=== PATIENT | female | born 1995 ===

== ENCOUNTER 2017-11-02 20:57 | Emergency (ER) | payer OTHER ==
[2017-11-02 22:42] LABS: BASO # 0.1 K/uL (0.0-0.2); BASO % 1.5 % (0.0-2.0); EOS # 0.3 K/uL (0.0-0.7); EOS % 3.2 % (0.0-4.0); HEMOGLOBIN 14.3 g/dL (12.0-16.0); LYMPH % 47.5 % (20.0-40.0); MEAN CELL VOLUME 79.4 fl (81.0-99.0); MEAN CORPUSCULAR HEMOGLOBIN 25.5 pg (27.0-31.0); MEAN CORPUSCULAR HGB CONC 32.1 g/dL (33.0-37.0); MEAN PLATELET VOLUME 8.2 fl (7.2-11.7); MONO # 0.9 K/uL (0.0-0.8); MONO % 10.2 % (0.0-10.0); NEUT # 3.2 K/uL (1.8-7.0); NEUT % 37.6 % (50.0-75.0); NRBC % 0.1 % (0.0-0.0); RBC 5.6 Mil/uL (3.80-5.20); RED CELL DISTRIBUTION WIDTH 14.5 % (11.5-14.5); WHITE BLOOD COUNT 8.4 K/uL (4.8-10.8)
[2017-11-02 22:55] VITALS: BMI 22.4
[2017-11-02 22:56] VITALS: RESP 18; TEMP 98.2; O2SAT 100
--- NOTE | 2017-11-02 23:06 | ED PDOC ---
HPI: CCC, URI, Sore Throat Time Seen by Provider: 11/02/17 21:15 Chief Complaint (Nursing): Cough, Cold, Congestion Chief Complaint (Provider): Dry Cough History Per: Patient History/Exam Limitations: no limitations Onset/Duration Of Symptoms: Days (two weeks), Intermittent Episodes Location Of Pain: Throat Additional History Per: Patient Additional Complaint(s): Patient presenting with dry cough for 1 week. 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 PMD none Past Medical History Reviewed: Historical Data, Nursing Documentation, Vital Signs Vital Signs: Last Vital Signs Temp 98.2 F 11/02/17 21:04 Pulse 122 H 11/03/17 00:45 Resp 18 11/02/17 21:04 BP 148/88 11/02/17 21:04 Pulse Ox 100 11/03/17 00:45 - Medical History PMH: Hyperthyroidism - Surgical History Surgical History: No Surg Hx - Family History Family History: States: No Known Family Hx - Home Medications Home Medications: Ambulatory Orders Medication Instructions Recorded Benzonatate [Tessalon Perles] 100 mg PO TID PRN #30 sgl 11/03/17 Methimazole 10 mg PO DAILY #30 tablet 11/03/17 - Allergies Allergies/Adverse Reactions: Allergies Allergy/AdvReac Type Severity Reaction Status Date / Time No Known Allergies Allergy Verified 11/02/17 21:04 Review of Systems ROS Statement: Except As Marked, All Systems Reviewed And Found Negative Cardiovascular: Negative for: Chest Pain, Palpitations Respiratory: Positive for: Cough. Negative for: Shortness of Breath Neurological: Negative for: Weakness, Numbness, Headache Physical Exam - Reviewed Nursing Documentation Reviewed: Yes Vital Signs Reviewed: Yes - Physical Exam Appears: Positive for: Well, Non-toxic, No Acute Distress Head Exam: Positive for: ATRAUMATIC, NORMAL INSPECTION Skin: Positive for: Normal Color, Warm, Dry Eye Exam: Positive for: EOMI ENT: Positive for: Normal ENT Inspection Neck: Positive for: Painless ROM, Supple, Trachea Midline (thyrodis gland enlarged) Cardiovascular/Chest: Positive for: Regular Rate, Rhythm, Tachycardia Respiratory: Positive for: Normal Breath Sounds. Negative for: Rales, Wheezing , Respiratory Distress Gastrointestinal/Abdominal: Positive for: Soft. Negative for: Tenderness Extremity: Positive for: Normal ROM Neurologic/Psych: Positive for: Alert, Oriented - Laboratory Results Result Diagrams: 11/02/17 21:45 11/02/17 23:02 - ECG ECG: Positive for: Interpreted By Me, Viewed By Me ECG Rhythm: Positive for: Normal QRS, Normal ST Segment, Sinus Rhythm, Sinus Tachycardia. Negative for: ST/T Changes Rate: 122 O2 Sat by Pulse Oximetry: 100 - Radiology X-Ray: Interpreted by Me, Viewed By Me X-Ray Interpretation: No Acute Disease Medical Decision Making Medical Decision Making: Impression Cough, thyroid goiter, tachycardia Hyperthyroid, goiter, bronchitis. Plan: CBC BMP TSH CXR reassess Labs reviewed. Patient is stable for discharge. Discussed with FP resident who will make a follow up appointment with [facility]. Disposition - Clinical Impression Clinical Impression: Cough, Thyroid goiter, Hyperthyroidism - Patient ED Disposition Is Patient to be Admitted: No Doctor Will See Patient In The: Office Counseled Patient/Family Regarding: Studies Performed, Diagnosis, Need For Followup - Disposition Referrals: [facility] [Outside] Disposition: Routine/Home Disposition Time: 00:30 Condition: GOOD Additional Instructions: Take your medications as instructed. Follow up with your PCP within 1 week. Prescriptions: Benzonatate [Tessalon Perles] 100 mg PO TID PRN #30 sgl PRN Reason: Cough Methimazole 10 mg PO DAILY #30 tablet Instructions: Hyperthyroidism (ED) Print Language: TURKMEN
[2017-11-02 23:11] LABS: BLOOD UREA NITROGEN 8 mg/dl (7-17); CALCIUM 9.8 mg/dL (8.4-10.2); GFR AFRICAN-AMERICAN > 60; GFR NON-AFRICAN AMERICAN > 60
[2017-11-03 00:50] VITALS: BP 114/57
[2017-11-03 01:09] VITALS: PULSE 98
--- NOTE | 2017-11-03 11:30 | RAD ---
HISTORY: chest pain COMPARISON: No prior. TECHNIQUE: Chest PA and lateral FINDINGS: LUNGS: No active pulmonary disease. PLEURA: No significant pleural effusion identified. No pneumothorax apparent. CARDIOVASCULAR: Normal. OSSEOUS STRUCTURES: No significant abnormalities. VISUALIZED UPPER ABDOMEN: Normal. OTHER FINDINGS: Tracheal deviation to the left. IMPRESSION: No active disease. Nonspecific leftward tracheal deviation may be related to enlarged thyroid. Clinical correlation and possibly thyroid ultrasound are recommended for further evaluation. ER notification submitted electronically.
--- NOTE | 2017-11-03 17:55 | CARD ---
APPROVED REPORT EKG Measurement Heart [id number] <Conclusion> Sinus tachycardia Biatrial enlargement Abnormal ECG
== END 2017-11-03 01:08 | disposition home or self-care (01) ==
LOC: H.ER 20:57
DX: J39.8 Other specified diseases of upper respiratory tract (principal); E05.00 Thyrotoxicosis with diffuse goiter without thyrotoxic crisis or storm; I51.7 Cardiomegaly

== ENCOUNTER 2018-02-24 07:58 | Emergency (ER) | payer OTHER ==
[2018-02-24 08:07] VITALS: BMI 22.7
[2018-02-24 08:08] VITALS: BP 101/56; PULSE 85; RESP 17; TEMP 98.1; O2SAT 100
--- NOTE | 2018-02-24 08:44 | ED PDOC ---
HPI: Chest Pain Time Seen by Provider: 02/24/18 08:13 Chief Complaint (Nursing): Palpitations Chief Complaint (Provider): Palpitations History Per: Patient Onset/Duration Of Symptoms: Days (x7) Current Symptoms Are (Timing): Still Present Quality: "Pain" Additional Complaint(s): 22 year old female, with a past medical history of hyperthyroidism, presents to the ED complaining of constant palpitations, onset one week. Patient takes Propanalol and Methimazole for hyperthyroidism. Patient is compliant with medications. Past Medical History Reviewed: Historical Data, Nursing Documentation, Vital Signs Vital Signs: Last Vital Signs Temp 98.1 F 02/24/18 08:07 Pulse 85 02/24/18 08:07 Resp 17 02/24/18 08:07 BP 101/56 L 02/24/18 08:07 Pulse Ox 100 02/24/18 11:43 - Medical History PMH: Hyperthyroidism, Hypothyroidism - Surgical History Surgical History: No Surg Hx - Family History Family History: States: Unknown Family Hx - Home Medications Home Medications: Ambulatory Orders Medication Instructions Recorded Benzonatate [Tessalon Perles] 100 mg PO TID PRN #30 sgl 11/03/17 Methimazole 10 mg PO DAILY #30 tablet 11/03/17 - Allergies Allergies/Adverse Reactions: Allergies Allergy/AdvReac Type Severity Reaction Status Date / Time No Known Allergies Allergy Verified 11/02/17 21:04 Review of Systems ROS Statement: Except As Marked, All Systems Reviewed And Found Negative Cardiovascular: Positive for: Palpitations. Negative for: Chest Pain Respiratory: Negative for: Shortness of Breath Physical Exam - Reviewed Nursing Documentation Reviewed: Yes Vital Signs Reviewed: Yes - Physical Exam Appears: Positive for: Non-toxic, No Acute Distress Head Exam: Positive for: ATRAUMATIC, NORMOCEPHALIC Skin: Positive for: Normal Color, Warm, Dry Eye Exam: Positive for: EOMI, Normal appearance, PERRL ENT: Positive for: Normal ENT Inspection, Other (Enlarged thyroid midline to the right.) Neck: Positive for: Normal, Painless ROM, Supple Cardiovascular/Chest: Positive for: Regular Rate, Rhythm. Negative for: Murmur Respiratory: Positive for: Normal Breath Sounds. Negative for: Respiratory Distress Gastrointestinal/Abdominal: Positive for: Normal Exam, Soft. Negative for: Tenderness Back: Positive for: Normal Inspection. Negative for: L CVA Tenderness, R CVA Tenderness, Vertebral Tenderness Extremity: Positive for: Normal ROM. Negative for: Pedal Edema, Deformity Neurologic/Psych: Positive for: Alert, Oriented. Negative for: Motor/Sensory Deficits - Laboratory Results Result Diagrams: 02/24/18 09:00 02/24/18 09:00 - ECG Interpretation Of ECG: NSR @ 85, no ST-T changes. O2 Sat by Pulse Oximetry: 100 (RA) Pulse Ox Interpretation: Normal Medical Decision Making Medical Decision Making: Time: 841 Plan: -- CMP -- TSH -- ED Urine -- CBC with differentials -- D-Dimer -- Chest Two Views X-Ray -- Urinalysis Time: 938 CXR Results FINDINGS: LUNGS: No active pulmonary disease. PLEURA: No significant pleural effusion identified. No pneumothorax apparent. CARDIOVASCULAR: Normal. OSSEOUS STRUCTURES: No significant abnormalities. VISUALIZED UPPER ABDOMEN: Normal. OTHER FINDINGS: None. IMPRESSION: No active disease. Scribe Attestation: Documented by Ovidio Du, acting as a scribe for Dr. Duyen Frias MD. Provider Scribe Attestation: All medical record entries made by the Scribe were at my direction and personally dictated by me. I have reviewed the chart and agree that the record accurately reflects my personal performance of the history, physical exam, medical decision making, and the department course for this patient. I have also personally directed, reviewed, and agree with the discharge instructions and disposition. Disposition - Clinical Impression Clinical Impression: Hyperthyroidism, Palpitations - Disposition Referrals: [facility] [Outside] [facility] [Outside] Esther Chandler MD [Medical Doctor] - Disposition: Routine/Home Disposition Time: 11:24 Condition: STABLE Instructions: Hyperthyroidism (Overactive Thyroid), Palpitations Forms: [facility] (Croatian) Print Language: KHMER
[2018-02-24 09:24] LABS: BASO % 0.2 % (0.0-2.0); EOS # 0.1 K/uL (0.0-0.7); EOS % 1.6 % (0.0-4.0); HEMOGLOBIN 13.2 g/dL (12.0-16.0); LYMPH # 2.3 K/uL (1.0-4.3); LYMPH % 38.5 % (20.0-40.0); MEAN CELL VOLUME 84.1 fl (81.0-99.0); MEAN CORPUSCULAR HEMOGLOBIN 28.2 pg (27.0-31.0); MEAN CORPUSCULAR HGB CONC 33.5 g/dL (33.0-37.0); MEAN PLATELET VOLUME 8.8 fl (7.2-11.7); MONO # 0.8 K/uL (0.0-0.8); MONO % 13.7 % (0.0-10.0); NEUT # 2.7 K/uL (1.8-7.0); NRBC % 0.1 % (0.0-0.0); RBC 4.7 Mil/uL (3.80-5.20); RED CELL DISTRIBUTION WIDTH 13.2 % (11.5-14.5); WHITE BLOOD COUNT 5.9 K/uL (4.8-10.8)
[2018-02-24 09:26] LABS: ALB/GLOB RATIO 1.2 (1.0-2.1); ALBUMIN 3.6 g/dL (3.5-5.0); ALT/SGPT 39 U/L (9-52); AST/SGOT 24 U/L (14-36); BLOOD UREA NITROGEN 8 mg/dl (7-17); CALCIUM 9.4 mg/dL (8.4-10.2); GFR AFRICAN-AMERICAN > 60; GFR NON-AFRICAN AMERICAN > 60
[2018-02-24 09:36] LABS: SQUAMOUS EPITHIAL 3 /hpf (0-5); URINE BACTERIA RARE (<OCC); URINE BILIRUBIN NEGATIVE (NEGATIVE); URINE BLOOD NEGATIVE (NEGATIVE); URINE CLARITY SLIGHTY-CLOUDY (Clear); URINE COLOR YELLOW (YELLOW); URINE GLUCOSE (UA) NEG (Normal); URINE LEUKOCYTE ESTERASE MOD Leu/uL (Negative); URINE PROTEIN NEGATIVE (NEGATIVE); URINE UROBILINOGEN 0.2-1.0 mg/dL (0.2-1.0)
--- NOTE | 2018-02-24 09:41 | RAD ---
HISTORY: Palpitations COMPARISON: No prior. TECHNIQUE: Chest PA and lateral FINDINGS: LUNGS: No active pulmonary disease. PLEURA: No significant pleural effusion identified. No pneumothorax apparent. CARDIOVASCULAR: Normal. OSSEOUS STRUCTURES: No significant abnormalities. VISUALIZED UPPER ABDOMEN: Normal. OTHER FINDINGS: None. IMPRESSION: No active disease.
--- NOTE | 2018-02-26 16:57 | CARD ---
APPROVED REPORT EKG Measurement Heart [id number] <Conclusion> Normal sinus rhythm Possible Left atrial enlargement Borderline ECG
== END 2018-02-24 12:19 | disposition home or self-care (01) ==
LOC: SUPCPDRO 07:58 → H.ER 07:58
DX: R00.2 Palpitations (principal); E03.9 Hypothyroidism, unspecified; E05.90 Thyrotoxicosis, unspecified without thyrotoxic crisis or storm

== ENCOUNTER 2018-07-16 08:31 | Emergency (ER) | payer SELFPAY ==
[2018-07-16 08:31] VITALS: BMI 22.7
[2018-07-16 08:51] VITALS: O2SAT 100
--- NOTE | 2018-07-16 09:31 | ED PDOC ---
HPI: Abdomen Time Seen by Provider: 07/16/18 09:20 Chief Complaint (Nursing): Abdominal Pain History Per: Patient Onset/Duration Of Symptoms: Days (2) Current Symptoms Are (Timing): Still Present Severity: Mild Pain Scale Rating Of: 3 Location Of Pain/Discomfort: RLQ, LLQ Quality Of Discomfort: Unable To Describe Associated Symptoms: Nausea. denies: Vomiting, Diarrhea, Urinary Symptoms Exacerbating Factors: None Alleviating Factors: None Additional Complaint(s): Lower quad abd pain x 2 days. Mild nausea. Denies vomiting or diarrhea. Denies urinary sxs. Denies fever. Past Medical History Vital Signs: Last Vital Signs Temp 98 F 07/16/18 08:48 Pulse 88 07/16/18 08:48 Resp 17 07/16/18 08:48 BP 98/63 L 07/16/18 08:48 Pulse Ox 100 07/16/18 08:48 - Medical History PMH: Hyperthyroidism, Hypothyroidism - Family History Family History: States: Unknown Family Hx - Immunization History Hx Tetanus Toxoid Vaccination: No Hx Influenza Vaccination: No Hx Pneumococcal Vaccination: No - Home Medications Home Medications: Ambulatory Orders Medication Instructions Recorded Benzonatate [Tessalon Perles] 100 mg PO TID PRN #30 sgl 11/03/17 Methimazole 10 mg PO DAILY #30 tablet 11/03/17 Naproxen [Naprosyn] 500 mg PO Q12H #20 tab 07/16/18 - Allergies Allergies/Adverse Reactions: Allergies Allergy/AdvReac Type Severity Reaction Status Date / Time No Known Allergies Allergy Verified 11/02/17 21:04 Review of Systems Constitutional: Negative for: Fever Gastrointestinal: Positive for: Nausea, Abdominal Pain Genitourinary Female: Negative for: Dysuria, Frequency Musculoskeletal: Negative for: Back Pain Physical Exam - Physical Exam Appears: Positive for: Non-toxic, No Acute Distress Skin: Positive for: Normal Color, Warm, DRY Cardiovascular/Chest: Positive for: Regular Rate, Rhythm Respiratory: Positive for: CNT, Normal Breath Sounds Gastrointestinal/Abdominal: Positive for: Bowel Sounds, Soft, Tenderness (Bilat). Negative for: Mass Back: Negative for: L CVA Tenderness, R CVA Tenderness Extremity: Positive for: Normal ROM Neurologic/Psych: Positive for: Alert, Oriented - Laboratory Results Result Diagrams: 07/16/18 10:18 07/16/18 10:18 - ECG O2 Sat by Pulse Oximetry: 100 - Progress Re-evaluation Time: 13:40 Condition: Improved (Minimal tenderness lower quads bilat. CT findings reviewed. Doubt appendicitis as etiology for pain. No progression of sxs. Most likely ovarian cyst as cuasitive etiology.) Disposition - Clinical Impression Clinical Impression: Ovarian cyst - Patient ED Disposition Is Patient to be Admitted: No Counseled Patient/Family Regarding: Studies Performed, Diagnosis, Need For Followup, Rx Given - Disposition [facility] Disposition: Routine/Home Disposition Time: 13:41 Condition: FAIR Prescriptions: Naproxen [Naprosyn] 500 mg PO Q12H #20 tab Instructions: Ovarian Cysts Forms: [employer] ([place])
[2018-07-16 10:26] LABS: BASO % 0.1 % (0.0-2.0); LYMPH # 1.4 K/uL (1.0-4.3); LYMPH % 11.5 % (20.0-40.0); MEAN CELL VOLUME 81.2 fl (81.0-99.0); MEAN CORPUSCULAR HEMOGLOBIN 26.7 pg (27.0-31.0); MEAN CORPUSCULAR HGB CONC 32.9 g/dL (33.0-37.0); MEAN PLATELET VOLUME 7.7 fl (7.2-11.7); MONO # 0.5 K/uL (0.0-0.8); MONO % 4.3 % (0.0-10.0); NEUT # 10.2 K/uL (1.8-7.0); NEUT % 84.1 % (50.0-75.0); NRBC % 0.1 % (0.0-0.0); RBC 4.88 Mil/uL (3.80-5.20); RED CELL DISTRIBUTION WIDTH 13.9 % (11.5-14.5); WHITE BLOOD COUNT 12.1 K/uL (4.8-10.8)
[2018-07-16 10:37] LABS: ALB/GLOB RATIO 1.1 (1.0-2.1); ALBUMIN 3.9 g/dL (3.5-5.0); ALT/SGPT 26 U/L (9-52); AST/SGOT 21 U/L (14-36); BLOOD UREA NITROGEN 7 mg/dl (7-17); CALCIUM 9.4 mg/dL (8.4-10.2); GFR NON-AFRICAN AMERICAN > 60
[2018-07-16] MEDS ORDERED: Iohexol 300 100 ML IJ ONE (11:31)
[2018-07-16] MEDS ORDERED: Sodium Chloride 0.9% 50 ML IV ONE (11:31)
--- NOTE | 2018-07-16 13:14 | CT ---
Date of service: 07/16/2018 PROCEDURE: CT Abdomen and Pelvis with contrast HISTORY: Abd pain COMPARISON: None. TECHNIQUE: Following the intravenous administration of iodinated contrast material, a CT examination of the abdomen and pelvis performed from the domes of the diaphragms to the symphysis pubis with reformatted datasets provided in axial, sagittal and coronal planes. Oral contrast was not administered as per referring physician request. Coronal and sagittal reformats were generated. contrast dose: Omnipaque 300, 95 cc Radiation dose: Total exam DLP = 217.31 mGy-cm. This CT exam was performed using one or more of the following dose reduction techniques: Automated exposure control, adjustment of the mA and/or kV according to patient size, and/or use of iterative reconstruction technique. FINDINGS: LOWER THORAX: Unremarkable. LIVER: Unremarkable. No gross lesion or ductal dilatation. GALLBLADDER AND BILE DUCTS: Unremarkable. PANCREAS: Unremarkable. No gross lesion or ductal dilatation. SPLEEN: Unremarkable. ADRENALS: Unremarkable. No mass. KIDNEYS AND URETERS: Unremarkable. No hydronephrosis. No solid mass. VASCULATURE: Unremarkable. No aortic aneurysm. BOWEL: Evaluation of the gastrointestinal tract is limited due to the lack of oral contrast administration. No bowel obstruction or free intra peritoneal gas identified. Limited fluid is seen at the right lower quadrant/right hemipelvis as well as inferior left hemipelvis. No bowel obstruction appreciated. APPENDIX: A left adnexal cyst is identified measuring 1.8 x 2.6 cm slightly irregular periphery suggesting partial cyst rupture and limited decompression at this time. This right sided fluid may have originated from this cyst though this is not definite. The appendix is poorly characterized but appears to measure normal caliber overall. Appendicitis is not completely excluded but is not favored. Further clinical correlation advised. PERITONEUM: No free air. Peritoneal fluid is seen the pelvis and minimally at the right lower quadrant somewhat. Please see discussion above in appendix section LYMPH NODES: Unremarkable. No enlarged lymph nodes. BLADDER: Distended but smooth and thin walled. No suspicious findings. REPRODUCTIVE: Please see appendix section above. BONES: No acute fracture. OTHER FINDINGS: None. IMPRESSION: Likely partial rupture of a left adnexal cyst measuring 2.6 cm with fluid in the bilateral necks compartments and extending slightly cephalad into the right lower quadrant abdomen. The appendix is limited evaluation due lack of oral contrast administration and the presence of peritoneal fluid. Appendicitis is not favored but is difficult to completely exclude. Clinically correlate further. Examination otherwise appears unremarkable.
[2018-07-16 13:50] VITALS: BP 100/70; PULSE 80; RESP 15; TEMP 97.8
== END 2018-07-16 13:50 | disposition home or self-care (01) ==
LOC: H.ER 08:31
DX: N83.209 Unspecified ovarian cyst, unspecified side (principal); E03.9 Hypothyroidism, unspecified; E05.90 Thyrotoxicosis, unspecified without thyrotoxic crisis or storm
CPT/HCPCS: 74177; 80053; 81025; 85025; 99284; Q9967